=== PATIENT | male | born 1960 | race Hispanic/Latino ===

== ENCOUNTER 2017-07-13 07:06 | Inpatient (IN) | payer BC ==
[2017-07-06 08:57] LABS: BASOPHILS # (AUTO) 0.1 (0.0-0.1); BASOPHILS % 0.6 % (0.0-1.0); EOSINOPHILS # (AUTO) 0.5 (0.0-0.4); EOSINOPHILS % 4.6 % (0.0-6.0); HEMOGLOBIN 12.5 g/dL (14.0-18.0); LYMPHOCYTES # (AUTO) 2.3 (1.0-3.2); LYMPHOCYTES % 20.4 % (18.0-39.1); MEAN CORPUSCULAR HGB CONC 33.8 g/dL (31-35); MEAN CORPUSCULAR VOLUME 88.9 fL (81-99); MONOCYTES # (AUTO) 0.9 (0.2-0.8); MONOCYTES % 7.6 % (4.4-11.3); NEUTROPHILS # (AUTO) 7.6 (2.1-6.9); NEUTROPHILS % 66.4 % (38.7-80.0); PLATELET COUNT 99 x10e3/uL (140-360); RED BLOOD COUNT 4.16 x10e6/uL (4.3-5.7); RED CELL DISTRIBUTION WIDTH 15.4 % (11.7-14.4)
[2017-07-06 09:43] LABS: ANION GAP 13.2 mmol/L (8-16); BLOOD UREA NITROGEN 15 mg/dL (7-26); BUN/CREATININE RATIO 16 (6-25); CALCIUM 9.4 mg/dL (8.4-10.2); CARBON DIOXIDE 28 mmol/L (22-29); CHLORIDE 105 mmol/L (98-107); CREATININE, SERUM 0.93 mg/dL (0.72-1.25); EST GLOMERULAR FILTRATION RATE > 60 ML/MIN (60-); GLUCOSE 98 mg/dL (74-118); POTASSIUM 5.2 mmol/L (3.5-5.1); SODIUM 141 mmol/L (136-145)
[~2017-07-13] VITALS: Ht 175.3 cm; Wt 147.4 kg
[~2017-07-13 07:06] MED LIST: LOSARTAN-HCTZ1 EAC2 PO
[2017-07-13] MEDS ORDERED: BUPIVACAINE 0.25%/EPI 30ML SDV INJ ONE (08:11)
[2017-07-13] MEDS ORDERED: ACETAMINOPHEN 1000 MG/100 ML IV PRN (15:00)
[2017-07-13] MEDS ORDERED: ONDANSETRON HCL INJ 2 MG/ML VIAL IV PRN (15:00)
[2017-07-13] MEDS ORDERED: HYDROMORPHONE 0.2MG/ML-SOD CHL 30ML PCA SYRINGE IV PRN (15:00)
[2017-07-13] MEDS ORDERED: NALOXONE HCL INJ 0.4 MG/ML AMP IV PRN (15:00)
[2017-07-13] MEDS ORDERED: KETOROLAC TROMETHAMINE 30 MG/ML VIAL IV PRN (15:00)
[2017-07-13] MEDS ORDERED: FENTANYL CITRATE/PF 100MCG/2 ML INJ ONE ×2 (15:04→19:15)
--- NOTE | 2017-07-13 15:53 | Operative Report ---
DATE OF PROCEDURE: July 13, 2017 PREOPERATIVE DIAGNOSIS: Incarcerated recurrent ventral hernia. POSTOPERATIVE DIAGNOSES 1. Incarcerated recurrent ventral hernia. 2. Extensive intra-abdominal adhesions with partial small-bowel obstruction. OPERATION PERFORMED 1. Exploratory laparotomy. 2. Extensive lysis of intra-abdominal adhesions. 3. Repair of recurrent ventral hernia with mesh and bilateral component relaxation and omphalectomy. SEWER SEPARATION DESIGNER: GIULIANO Kaminski. ANESTHESIA: General. COMPLICATIONS: None. ESTIMATED BLOOD LOSS: 200 mL. DESCRIPTION OF PROCEDURE: With the patient lying in bed in the supine position, under good general endotracheal anesthesia, the abdomen was prepped with Betadine solution and draped in the usual manner. An elliptical incision was then made to include the entire old incision from the xiphoid down to the pubis including the umbilicus. The incision was then deepened through the subcutaneous tissue. Immediately, a large hernia sac was encountered in the mid and upper abdomen. The hernia sac was then slowly and carefully , and the fascia was identified laterally on both sides. The hernia sac was then slowly and carefully dissected. There were several other defects along the midline fascia, and the fascia was then cleared laterally in all directions all the way to the anterior axillary line. After this was done, the hernia sac was then entered, and extensive adhesions were encountered inside, which were slowly and carefully taken down. At this point, once we were able to access the abdominal cavity, it became evident that the distal bowel was decompressed and the proximal small bowel was significantly distended, showing all signs of a partial or nearly complete small-bowel obstruction, which explains the patient's pain. Probably it has been due in some degree to a partial bowel obstruction as well as the large hernia. The only way to be able to get access to the extensive adhesions was to actually enlarge the incision along the midline of the hernia sac. The abdominal incision was then extended downward. At this point, we went ahead and slowly and carefully mobilized the small bowel. There were extensive adhesions all over the place, particularly down in the pelvis where there were multiple sutures from what we assume was some kind of a colonic anastomosis. The small bowel was plastered in the pelvis, and this was the point of obstruction. Small bowel was slowly and carefully from all of the adhesions, and we were then able to freely free it up all the way from the ligament of Treitz to the terminal ileum, and all of the adhesions were carefully lysed. Exploration of the abdominal cavity also revealed the patient's known cirrhosis of the liver. Once all of the bowel was cleared up and the adhesions were taken care of, the bowel was then carefully reduced back to the intra-abdominal cavity. The midline fascia was then approximated using interrupted [id number] of #0 Ethibond and #1 Ethibond. It was further oversewn with a running #1 PDS from the xiphoid all the way down to the pubis. This gave us a satisfactory closure, but it was clearly under tension due to the large defect that was present, so bilateral relaxations were then performed in the lateral rectus. This gave us a good release, and all of the tension of the midline was then relieved. A large piece of Ultrapro mesh was then placed to cover the entire abdomen and then sutured all the way around with interrupted sutures of #0 Ethibond and #0 Vicryl. This gave us complete coverage of the entire abdominal cavity. The whole area was then thoroughly irrigated. Perfect hemostasis was ascertained. The subcutaneous tissue was then approximated using interrupted sutures of 2-0 Vicryl. Two 10 flat Edwin-Russell drains were left in the wound and brought out through separate stab wound incisions. The skin was closed using interrupted vertical mattress sutures of 2-0 silk and srini. Dressings were placed. The sponge, lap and needle count was correct. Patient tolerated the procedure well and returned to the recovery room in stable condition. Job#: [id number]
[2017-07-13] MEDS ORDERED: HYDROMORPHONE 0.2MG/ML-SOD CHL 30ML PCA SYRINGE IV ONE (16:14)
[2017-07-13 16:54] VITALS: BP 120/64
[2017-07-13] MEDS: PANTOPRAZOLE 40 MG 10ML VIAL IV SCH (17:32)
[2017-07-13] MEDS: NITROGLYCERIN 2% OINT 1 GM PKT TOP SCH (17:32)
[2017-07-13] MEDS: CEFTRIAXONE SOD 1 GM VIAL IV SCH (17:32)
[2017-07-13] MEDS: SODIUM CHLORIDE 0.9% 250ML IRRIG IR SCH ×3 (17:33→22:34)
[2017-07-13] MEDS: SODIUM CHLORIDE 0.9% 1000ML 1,000 ML IV SCH (17:36)
[2017-07-13] MEDS ORDERED: MIDAZOLAM HCL 2 MG/2 ML VIAL ONE (19:15)
[2017-07-13] MEDS ORDERED: ROCURONIUM BROMIDE 10 MG/ML 5ML VIAL ONE (19:39)
[2017-07-13] MEDS ORDERED: LIDOCAINE HCL 2% LOCAL INJ 5 ML SDV VIAL INJ ONE (19:39)
[2017-07-13] MEDS ORDERED: PROPOFOL IV EMULSION 10 MG/ML 20 ML VIAL ONE (19:39)
[2017-07-13] MEDS ORDERED: DEXAMETHASONE SOD PHOS INJ 4 MG/ML VIAL ONE (19:39)
[2017-07-13] MEDS ORDERED: NEOSTIGMINE 5 MG/5ML SYR ONE (19:39)
[2017-07-13] MEDS ORDERED: ONDANSETRON HCL INJ 2 MG/ML VIAL ONE (19:39)
[2017-07-13] MEDS ORDERED: CEFAZOLIN SOD 1 GM VIAL ONE (19:39)
[2017-07-13] MEDS ORDERED: SEVOFLURANE INHAL SOLN 250 ML PEN BTL ONE (19:39)
[2017-07-13] MEDS ORDERED: GLYCOPYRROLATE INJ 1MG/ 5 ML SYR ONE (19:39)
[2017-07-13 20:00] VITALS: BP 118/59
[2017-07-13 20:11] VITALS: BP 118/59
[2017-07-14] VITALS: BP 122/63
[2017-07-14] MEDS: NITROGLYCERIN 2% OINT 1 GM PKT TOP SCH ×4 (00:45→17:08)
[2017-07-14] MEDS: SODIUM CHLORIDE 0.9% 1000ML 1,000 ML IV SCH ×4 (01:01→17:09)
[2017-07-14] MEDS: SODIUM CHLORIDE 0.9% 250ML IRRIG IR SCH ×6 (01:02→20:41)
[2017-07-14 04:00] VITALS: BP 120/67
[2017-07-14 06:56] LABS: BASOPHILS % 0.1 % (0.0-1.0); HEMATOCRIT 33.2 % (38.2-49.6); HEMOGLOBIN 11.3 g/dL (14.0-18.0); LYMPHOCYTES # (AUTO) 1.9 (1.0-3.2); LYMPHOCYTES % 8.6 % (18.0-39.1); MEAN CORPUSCULAR VOLUME 88.1 fL (81-99); MONOCYTES # (AUTO) 2.5 (0.2-0.8); MONOCYTES % 11.5 % (4.4-11.3); NEUTROPHILS # (AUTO) 16.9 (2.1-6.9); NEUTROPHILS % 78.5 % (38.7-80.0); PLATELET COUNT 147 x10e3/uL (140-360); RED BLOOD COUNT 3.77 x10e6/uL (4.3-5.7); RED CELL DISTRIBUTION WIDTH 15.7 % (11.7-14.4)
[2017-07-14 07:13] LABS: ANION GAP 11.3 mmol/L (8-16); BLOOD UREA NITROGEN 13 mg/dL (7-26); BUN/CREATININE RATIO 15 (6-25); CALCIUM 8.2 mg/dL (8.4-10.2); CARBON DIOXIDE 25 mmol/L (22-29); CHLORIDE 106 mmol/L (98-107); CREATININE, SERUM 0.89 mg/dL (0.72-1.25); EST GLOMERULAR FILTRATION RATE > 60 ML/MIN (60-); GLUCOSE 108 mg/dL (74-118); POTASSIUM 4.3 mmol/L (3.5-5.1); SODIUM 138 mmol/L (136-145)
[2017-07-14 07:55] VITALS: BP 120/65
[2017-07-14 08:29] LABS: ANISOCYTOSIS SLIGHT; LYMPHOCYTES % (MANUAL) 10 % (19-48); MONOCYTES % (MANUAL) 8 % (3.4-9.0); NEUTROPHILS % (MANUAL) 82 % (40-74); PLATELET ESTIMATE SLIGHTLY DECREASED; PLATELET MORPHOLOGY COMMENT FEW LARGE; RBC MORPHOLOGY COMMENT NORMAL
[2017-07-14 09:08] VITALS: BP 120/65
[2017-07-14] MEDS: PANTOPRAZOLE 40 MG 10ML VIAL IV SCH (09:09)
--- NOTE | 2017-07-14 11:25 | Diagnostic Imaging Report ---
PROCEDURE:X-RAY ABDOMEN - KUB COMPARISON:None. INDICATIONS:NG TUBE PLACEMENT FINDINGS: NG tube sidehole projects over the region of the gastroesophageal junction. The tip projects over the gastric body. No significantly distended air-filled loops of large or small bowel within the visualized abdomen. Skin srini and stent project over the abdomen right of midline. Partially visualized rectangular opacity projects over the left lower quadrant which may represent a drain. Right retrocardiac opacity may reflect atelectasis or aspiration. There are no acute osseous abnormalities. CONCLUSION: NG tube sidehole projects over the region of the gastroesophageal junction. The tip projects over the gastric body. Consider advancement. Dictated by: Shaquille Correa M.D. on 07/14/2017 at 11:25 Electronically approved by: Shaquille Correa M.D. on 07/14/2017 at 11:25
[2017-07-14] MEDS: CEFTRIAXONE SOD 1 GM VIAL IV SCH (15:43)
[2017-07-14] MEDS ORDERED: ACETAMINOPHEN 650 MG SUPP PR PRN (17:45)
[2017-07-14] MEDS: ACETAMINOPHEN 1000 MG/100 ML IV PRN (17:56)
[2017-07-14 20:00] VITALS: BP 127/58
[2017-07-14 20:41] VITALS: BP 127/58
[2017-07-15] VITALS (7 sets, daily range): BP systolic 116–145; BP diastolic 60–85
[2017-07-15] MEDS: NITROGLYCERIN 2% OINT 1 GM PKT TOP SCH ×4 (00:54→17:15)
[2017-07-15] MEDS: SODIUM CHLORIDE 0.9% 250ML IRRIG IR SCH ×5 (00:54→15:08)
[2017-07-15] MEDS: SODIUM CHLORIDE 0.9% 1000ML 1,000 ML IV SCH ×4 (00:55→17:15)
[2017-07-15] MEDS: ACETAMINOPHEN 1000 MG/100 ML IV PRN ×2 (00:55→09:14)
[2017-07-15 06:48] LABS: BASOPHILS # (AUTO) 0.1 (0.0-0.1); BASOPHILS % 0.4 % (0.0-1.0); EOSINOPHILS # (AUTO) 0.2 (0.0-0.4); EOSINOPHILS % 0.7 % (0.0-6.0); HEMATOCRIT 31.2 % (38.2-49.6); HEMOGLOBIN 10.5 g/dL (14.0-18.0); LYMPHOCYTES # (AUTO) 2.2 (1.0-3.2); LYMPHOCYTES % 10.8 % (18.0-39.1); MEAN CORPUSCULAR HEMOGLOBIN 29.8 pg (28-32); MEAN CORPUSCULAR HGB CONC 33.7 g/dL (31-35); MEAN CORPUSCULAR VOLUME 88.6 fL (81-99); MONOCYTES # (AUTO) 2.4 (0.2-0.8); MONOCYTES % 11.7 % (4.4-11.3); NEUTROPHILS # (AUTO) 15.3 (2.1-6.9); NEUTROPHILS % 75.6 % (38.7-80.0); PLATELET COUNT 123 x10e3/uL (140-360); RED BLOOD COUNT 3.52 x10e6/uL (4.3-5.7); RED CELL DISTRIBUTION WIDTH 15.6 % (11.7-14.4)
[2017-07-15 07:16] LABS: ANION GAP 8.9 mmol/L (8-16); BLOOD UREA NITROGEN 11 mg/dL (7-26); BUN/CREATININE RATIO 14 (6-25); CALCIUM 8.2 mg/dL (8.4-10.2); CARBON DIOXIDE 26 mmol/L (22-29); CHLORIDE 105 mmol/L (98-107); CREATININE, SERUM 0.81 mg/dL (0.72-1.25); EST GLOMERULAR FILTRATION RATE > 60 ML/MIN (60-); GLUCOSE 102 mg/dL (74-118); POTASSIUM 3.9 mmol/L (3.5-5.1); SODIUM 136 mmol/L (136-145)
[2017-07-15] MEDS: PANTOPRAZOLE 40 MG 10ML VIAL IV SCH (08:14)
[2017-07-15 09:06] LABS: EOSINOPHILS % (MANUAL) 1 % (0-7); METAMYELOCYTES % (MANUAL) 2 % (0-0); NEUTROPHILS % (MANUAL) 96 % (40-74)
[2017-07-15] MEDS: CEFTRIAXONE SOD 1 GM VIAL IV SCH (15:45)
[2017-07-15] MEDS: BISACODYL 10 MG SUPP PR SCH (21:11)
[2017-07-15] MEDS ORDERED: ACETAMINOPHEN 1000 MG/100 ML IV PRN (23:45)
[2017-07-16] VITALS (9 sets, daily range): BP systolic 106–134; BP diastolic 58–65
[2017-07-16] MEDS: SODIUM CHLORIDE 0.9% 1000ML 1,000 ML IV SCH ×3 (04:08→22:09)
[2017-07-16] MEDS: NITROGLYCERIN 2% OINT 1 GM PKT TOP SCH ×2 (05:34)
[2017-07-16 07:20] LABS: BASOPHILS # (AUTO) 0.1 (0.0-0.1); BASOPHILS % 0.4 % (0.0-1.0); EOSINOPHILS # (AUTO) 0.5 (0.0-0.4); EOSINOPHILS % 2.6 % (0.0-6.0); HEMATOCRIT 30.9 % (38.2-49.6); HEMOGLOBIN 10.2 g/dL (14.0-18.0); LYMPHOCYTES # (AUTO) 2.2 (1.0-3.2); LYMPHOCYTES % 12.8 % (18.0-39.1); MEAN CORPUSCULAR HEMOGLOBIN 29.6 pg (28-32); MEAN CORPUSCULAR VOLUME 89.6 fL (81-99); MONOCYTES # (AUTO) 1.6 (0.2-0.8); MONOCYTES % 9.1 % (4.4-11.3); NEUTROPHILS # (AUTO) 12.7 (2.1-6.9); NEUTROPHILS % 74.3 % (38.7-80.0); PLATELET COUNT 125 x10e3/uL (140-360); RED BLOOD COUNT 3.45 x10e6/uL (4.3-5.7); RED CELL DISTRIBUTION WIDTH 15.5 % (11.7-14.4)
[2017-07-16 07:58] LABS: ANION GAP 9.7 mmol/L (8-16); BLOOD UREA NITROGEN 10 mg/dL (7-26); BUN/CREATININE RATIO 14 (6-25); CALCIUM 8.3 mg/dL (8.4-10.2); CARBON DIOXIDE 24 mmol/L (22-29); CHLORIDE 106 mmol/L (98-107); EST GLOMERULAR FILTRATION RATE > 60 ML/MIN (60-); GLUCOSE 95 mg/dL (74-118); POTASSIUM 3.7 mmol/L (3.5-5.1); SODIUM 136 mmol/L (136-145)
[2017-07-16] MEDS: BISACODYL 10 MG SUPP PR SCH (08:00)
[2017-07-16] MEDS: PANTOPRAZOLE 40 MG 10ML VIAL IV SCH (08:14)
[2017-07-16 11:03] LABS: BAND NEUTROPHILS % (MANUAL) 1 %; EOSINOPHILS % (MANUAL) 3 % (0-7); LYMPHOCYTES % (MANUAL) 9 % (19-48); MONOCYTES % (MANUAL) 10 % (3.4-9.0); MYELOCYTES % (MANUAL) 1 % (0-0); NEUTROPHILS % (MANUAL) 75 % (40-74); PLATELET ESTIMATE ADEQUATE; PLATELET MORPHOLOGY COMMENT FEW LARGE; RBC MORPHOLOGY COMMENT NORMAL
[2017-07-16] MEDS: CEFTRIAXONE SOD 1 GM VIAL IV SCH (16:08)
[2017-07-16] MEDS: HYDROCODONE/APAP 10MG-325MG TAB PO PRN (17:40)
[2017-07-17] VITALS (8 sets, daily range): BP systolic 109–154; BP diastolic 57–91
[2017-07-17] MEDS: PANTOPRAZOLE 40 MG 10ML VIAL IV SCH (07:51)
[2017-07-17] MEDS: HYDROCODONE/APAP 10MG-325MG TAB PO PRN ×3 (07:51→20:00)
[2017-07-17 08:00] LABS: BASOPHILS # (AUTO) 0.1 (0.0-0.1); BASOPHILS % 0.5 % (0.0-1.0); EOSINOPHILS % 6.4 % (0.0-6.0); HEMATOCRIT 30.6 % (38.2-49.6); HEMOGLOBIN 10.1 g/dL (14.0-18.0); LYMPHOCYTES # (AUTO) 1.9 (1.0-3.2); LYMPHOCYTES % 12.5 % (18.0-39.1); MEAN CORPUSCULAR HEMOGLOBIN 29.3 pg (28-32); MEAN CORPUSCULAR VOLUME 88.7 fL (81-99); MONOCYTES # (AUTO) 1.1 (0.2-0.8); MONOCYTES % 7.3 % (4.4-11.3); NEUTROPHILS % 72.8 % (38.7-80.0); PLATELET COUNT 151 x10e3/uL (140-360); RED BLOOD COUNT 3.45 x10e6/uL (4.3-5.7); RED CELL DISTRIBUTION WIDTH 15.4 % (11.7-14.4)
[2017-07-17] MEDS ORDERED: NON-FORMULARY MEDICATION (Losartan/Hydrochlorothiazide (Losartan-Hctz 100-12.5 Mg Tab) 1 T PO SCH (09:00)
[2017-07-17] MEDS: HYDROCHLOROTHIAZIDE 25 MG TAB PO SCH (09:20)
[2017-07-17] MEDS: LOSARTAN POTASSIUM 100 MG TAB PO SCH (09:20)
[2017-07-17] MEDS: SODIUM CHLORIDE 0.9% 1000ML 1,000 ML IV SCH (10:07)
[2017-07-17] MEDS: CEFTRIAXONE SOD 1 GM VIAL IV SCH (15:50)
[2017-07-18] VITALS: BP 141/76
[2017-07-18 02:02] VITALS: BP 141/76
[2017-07-18 05:45] VITALS: BP 114/62
[2017-07-18 07:24] VITALS: BP 133/62
[2017-07-18 07:26] LABS: BASOPHILS # (AUTO) 0.1 (0.0-0.1); BASOPHILS % 0.5 % (0.0-1.0); EOSINOPHILS # (AUTO) 1.2 (0.0-0.4); EOSINOPHILS % 7.7 % (0.0-6.0); HEMATOCRIT 31.5 % (38.2-49.6); HEMOGLOBIN 10.5 g/dL (14.0-18.0); LYMPHOCYTES % 13.1 % (18.0-39.1); MEAN CORPUSCULAR HEMOGLOBIN 29.5 pg (28-32); MEAN CORPUSCULAR HGB CONC 33.3 g/dL (31-35); MEAN CORPUSCULAR VOLUME 88.5 fL (81-99); MONOCYTES # (AUTO) 1.1 (0.2-0.8); MONOCYTES % 7.6 % (4.4-11.3); NEUTROPHILS # (AUTO) 10.5 (2.1-6.9); NEUTROPHILS % 70.5 % (38.7-80.0); PLATELET COUNT 169 x10e3/uL (140-360); RED BLOOD COUNT 3.56 x10e6/uL (4.3-5.7); RED CELL DISTRIBUTION WIDTH 15.3 % (11.7-14.4)
[2017-07-18 09:00] VITALS: BP 133/62
[2017-07-18] MEDS: HYDROCHLOROTHIAZIDE 25 MG TAB PO SCH (10:00)
[2017-07-18] MEDS: PANTOPRAZOLE 40 MG 10ML VIAL IV SCH (10:00)
[2017-07-18] MEDS: LOSARTAN POTASSIUM 100 MG TAB PO SCH (10:00)
[2017-07-18] MEDS: CEFTRIAXONE SOD 1 GM VIAL IV SCH (16:30)
[2017-07-18] MEDS ORDERED: LORATAB PO (16:57)
[2017-07-18] MEDS ORDERED: KEFLEX500 MG PO (16:58)
[2017-07-18] MEDS ORDERED: PROMETHAZINE HC25 M1 PO (16:59)
== END 2017-07-18 17:29 | disposition home or self-care (01) | DRG 337 ==
LOC: OR 07:06 → MED/SURG 15:34 → OBSVTOIN 15:34
PROVIDERS: ADMIT Surgery; ATTEND Surgery
PROC: 0DNW0ZZ Release Peritoneum, Open Approach (ICD-10-PCS; 2017-07-13)
PROC: 0WBF0ZX Excision of Abdominal Wall, Open Approach, Diagnostic (ICD-10-PCS; 2017-07-13)
PROC: 0DN80ZZ Release Small Intestine, Open Approach (ICD-10-PCS; 2017-07-13)
PROC: 3E0M45Z Introduction of Adhesion Barrier into Peritoneal Cavity, Percutaneous Endoscopic Approach (ICD-10-PCS; 2017-07-13)
PROC: 0WUF0JZ Supplement Abdominal Wall with Synthetic Substitute, Open Approach (ICD-10-PCS; principal; 2017-07-13 08:30)
DX: K43.0 Incisional hernia with obstruction, without gangrene (principal); K74.60 Unspecified cirrhosis of liver; I10 Essential (primary) hypertension; B19.20 Unspecified viral hepatitis C without hepatic coma; Z90.49 Acquired absence of other specified parts of digestive tract
CPT/HCPCS: 36415; 74018; 80048; 85025; 88302; 88304; 93005; C1781; J0690; J0696; J1100; J2001; J2250; J2405; J7030

== ENCOUNTER → 2017-08-16 | Outpatient (CLI) | payer BC ==
[~2017-08-16] MED LIST changes: +KEFLEX500 MG PO; +LORATAB PO; +PROMETHAZINE HC25 M1 PO
== END ==
LOC: WCC 08:44
PROVIDERS: ATTEND Surgery
DX: T81.32XA Disruption of internal operation (surgical) wound, not elsewhere classified, initial encounter (principal); K91.31 Postprocedural partial intestinal obstruction; I10 Essential (primary) hypertension; E66.01 Morbid (severe) obesity due to excess calories

== ENCOUNTER → 2017-08-17 | Outpatient (CLI) | payer BC | LOC: WCC 10:26 | PROVIDERS: ATTEND Surgery | DX: T81.32XA Disruption of internal operation (surgical) wound, not elsewhere classified, initial encounter (principal); K91.31 Postprocedural partial intestinal obstruction; I10 Essential (primary) hypertension; E66.01 Morbid (severe) obesity due to excess calories ==

== ENCOUNTER → 2017-08-18 | Outpatient (CLI) | payer BC | LOC: WCC 09:25 | PROVIDERS: ATTEND Surgery | DX: T81.32XA Disruption of internal operation (surgical) wound, not elsewhere classified, initial encounter (principal); K91.31 Postprocedural partial intestinal obstruction; I10 Essential (primary) hypertension; E66.01 Morbid (severe) obesity due to excess calories ==

== ENCOUNTER → 2017-08-22 | Outpatient (CLI) | payer BC | LOC: WCC 09:23 | PROVIDERS: ATTEND Surgery | DX: T81.32XA Disruption of internal operation (surgical) wound, not elsewhere classified, initial encounter (principal); K91.31 Postprocedural partial intestinal obstruction; I10 Essential (primary) hypertension; E66.01 Morbid (severe) obesity due to excess calories ==

== ENCOUNTER → 2017-08-22 | Outpatient (CLI) | payer BC | LOC: WCC 09:21 | PROVIDERS: ATTEND Surgery | DX: T81.32XA Disruption of internal operation (surgical) wound, not elsewhere classified, initial encounter (principal); K91.31 Postprocedural partial intestinal obstruction; I10 Essential (primary) hypertension; E66.01 Morbid (severe) obesity due to excess calories ==

== ENCOUNTER → 2017-08-24 | Outpatient (CLI) | payer BC | LOC: WCC 08:45 | PROVIDERS: ATTEND Surgery | DX: T81.32XA Disruption of internal operation (surgical) wound, not elsewhere classified, initial encounter (principal); K91.31 Postprocedural partial intestinal obstruction; I10 Essential (primary) hypertension; E66.01 Morbid (severe) obesity due to excess calories ==

== ENCOUNTER → 2017-08-26 | Outpatient (CLI) | payer BC | LOC: WCC 13:22 | PROVIDERS: ATTEND Surgery | DX: T81.32XA Disruption of internal operation (surgical) wound, not elsewhere classified, initial encounter (principal); K91.31 Postprocedural partial intestinal obstruction; I10 Essential (primary) hypertension; E66.01 Morbid (severe) obesity due to excess calories ==

== ENCOUNTER → 2017-08-29 | Outpatient (CLI) | payer BC | LOC: WCC 10:00 | PROVIDERS: ATTEND Surgery | DX: T81.32XA Disruption of internal operation (surgical) wound, not elsewhere classified, initial encounter (principal); K91.31 Postprocedural partial intestinal obstruction; I10 Essential (primary) hypertension; E66.01 Morbid (severe) obesity due to excess calories ==

== ENCOUNTER → 2017-08-31 | Outpatient (CLI) | payer BC | LOC: EDBD → EDSEX → WCC 09:16 | PROVIDERS: ATTEND Surgery | DX: T81.32XA Disruption of internal operation (surgical) wound, not elsewhere classified, initial encounter (principal); K91.31 Postprocedural partial intestinal obstruction; I10 Essential (primary) hypertension; E66.01 Morbid (severe) obesity due to excess calories ==

== ENCOUNTER → 2017-09-02 | Outpatient (CLI) | payer BC | LOC: WCC 08:57 | PROVIDERS: ATTEND Surgery | DX: T81.32XA Disruption of internal operation (surgical) wound, not elsewhere classified, initial encounter (principal); K91.31 Postprocedural partial intestinal obstruction; I10 Essential (primary) hypertension; E66.01 Morbid (severe) obesity due to excess calories ==

== ENCOUNTER → 2017-09-06 | Outpatient (CLI) | payer BC | LOC: WCC 09:53 | PROVIDERS: ATTEND Surgery | DX: T81.32XA Disruption of internal operation (surgical) wound, not elsewhere classified, initial encounter (principal); K91.31 Postprocedural partial intestinal obstruction; I10 Essential (primary) hypertension; E66.01 Morbid (severe) obesity due to excess calories ==

== ENCOUNTER → 2017-09-09 | Outpatient (CLI) | payer BC | LOC: WCC 09:03 | PROVIDERS: ATTEND Surgery | DX: T81.32XA Disruption of internal operation (surgical) wound, not elsewhere classified, initial encounter (principal); K91.31 Postprocedural partial intestinal obstruction; I10 Essential (primary) hypertension; E66.01 Morbid (severe) obesity due to excess calories ==

== ENCOUNTER → 2017-09-12 | Outpatient (CLI) | payer BC | LOC: EDBD → EDSEX → WCC 09:06 | PROVIDERS: ATTEND Plastic Surgery | DX: T81.32XA Disruption of internal operation (surgical) wound, not elsewhere classified, initial encounter (principal); K91.31 Postprocedural partial intestinal obstruction; I10 Essential (primary) hypertension; E66.01 Morbid (severe) obesity due to excess calories ==

== ENCOUNTER → 2017-09-14 | Outpatient (CLI) | payer BC | LOC: WCC 08:51 | PROVIDERS: ATTEND Surgery | DX: T81.32XA Disruption of internal operation (surgical) wound, not elsewhere classified, initial encounter (principal); K91.31 Postprocedural partial intestinal obstruction; I10 Essential (primary) hypertension; E66.01 Morbid (severe) obesity due to excess calories | CPT/HCPCS: 87071; 87075; 87205 ==

== ENCOUNTER → 2017-09-16 | Outpatient (CLI) | payer BC | LOC: WCC 08:58 | PROVIDERS: ATTEND Surgery | DX: T81.32XA Disruption of internal operation (surgical) wound, not elsewhere classified, initial encounter (principal); K91.31 Postprocedural partial intestinal obstruction; I10 Essential (primary) hypertension; E66.01 Morbid (severe) obesity due to excess calories ==

== ENCOUNTER → 2017-09-19 | Outpatient (CLI) | payer BC | LOC: WCC 08:52 | PROVIDERS: ATTEND Surgery | DX: T81.32XA Disruption of internal operation (surgical) wound, not elsewhere classified, initial encounter (principal); A49.02 Methicillin resistant Staphylococcus aureus infection, unspecified site; I10 Essential (primary) hypertension; K91.31 Postprocedural partial intestinal obstruction; E66.01 Morbid (severe) obesity due to excess calories ==

== ENCOUNTER → 2017-09-20 | Outpatient (CLI) | payer BC | LOC: WCC 08:25 | PROVIDERS: ATTEND Surgery | DX: T81.32XA Disruption of internal operation (surgical) wound, not elsewhere classified, initial encounter (principal); K91.31 Postprocedural partial intestinal obstruction; A49.02 Methicillin resistant Staphylococcus aureus infection, unspecified site; I10 Essential (primary) hypertension; E66.01 Morbid (severe) obesity due to excess calories ==

== ENCOUNTER → 2017-09-23 | Outpatient (CLI) | payer BC | LOC: EDBD → EDSEX → WCC 09:51 | PROVIDERS: ATTEND Surgery | DX: T81.32XA Disruption of internal operation (surgical) wound, not elsewhere classified, initial encounter (principal); A49.02 Methicillin resistant Staphylococcus aureus infection, unspecified site; K91.31 Postprocedural partial intestinal obstruction; I10 Essential (primary) hypertension; E66.01 Morbid (severe) obesity due to excess calories ==

== ENCOUNTER → 2017-09-26 | Outpatient (CLI) | payer BC | LOC: EDSEX → EDBD → WCC 14:02 | PROVIDERS: ATTEND Plastic Surgery | DX: T81.32XA Disruption of internal operation (surgical) wound, not elsewhere classified, initial encounter (principal); A49.02 Methicillin resistant Staphylococcus aureus infection, unspecified site; K91.31 Postprocedural partial intestinal obstruction; I10 Essential (primary) hypertension; E66.01 Morbid (severe) obesity due to excess calories ==

== ENCOUNTER → 2017-09-28 | Outpatient (CLI) | payer BC | LOC: EDSEX → WCC 10:49 | PROVIDERS: ATTEND Surgery | DX: T81.32XA Disruption of internal operation (surgical) wound, not elsewhere classified, initial encounter (principal); A49.02 Methicillin resistant Staphylococcus aureus infection, unspecified site; K91.31 Postprocedural partial intestinal obstruction; I10 Essential (primary) hypertension; E66.01 Morbid (severe) obesity due to excess calories ==

== ENCOUNTER → 2017-09-30 | Outpatient (CLI) | payer BC | LOC: WCC 14:29 | PROVIDERS: ATTEND Internal Medicine Infectious Disease | DX: T81.32XA Disruption of internal operation (surgical) wound, not elsewhere classified, initial encounter (principal); A49.02 Methicillin resistant Staphylococcus aureus infection, unspecified site; K91.31 Postprocedural partial intestinal obstruction; I10 Essential (primary) hypertension; E66.01 Morbid (severe) obesity due to excess calories ==

== ENCOUNTER → 2017-10-03 | Outpatient (CLI) | payer BC | LOC: WCC 10:12 | PROVIDERS: ATTEND Plastic Surgery | DX: T81.32XA Disruption of internal operation (surgical) wound, not elsewhere classified, initial encounter (principal); K91.31 Postprocedural partial intestinal obstruction; A49.02 Methicillin resistant Staphylococcus aureus infection, unspecified site; L02.232 Carbuncle of back [any part, except buttock and flank]; I10 Essential (primary) hypertension; E66.01 Morbid (severe) obesity due to excess calories | CPT/HCPCS: 87071; 87075; 87205 ==

== ENCOUNTER → 2017-10-05 | Outpatient (CLI) | payer BC | LOC: WCC 09:58 | PROVIDERS: ATTEND Plastic Surgery | DX: T81.32XA Disruption of internal operation (surgical) wound, not elsewhere classified, initial encounter (principal); K91.31 Postprocedural partial intestinal obstruction; L02.232 Carbuncle of back [any part, except buttock and flank]; A49.02 Methicillin resistant Staphylococcus aureus infection, unspecified site; I10 Essential (primary) hypertension; E66.01 Morbid (severe) obesity due to excess calories ==

== ENCOUNTER → 2017-10-07 | Outpatient (CLI) | payer BC | LOC: WCC 11:13 | PROVIDERS: ATTEND Internal Medicine Infectious Disease | DX: T81.32XA Disruption of internal operation (surgical) wound, not elsewhere classified, initial encounter (principal); K91.31 Postprocedural partial intestinal obstruction; L02.232 Carbuncle of back [any part, except buttock and flank]; A49.02 Methicillin resistant Staphylococcus aureus infection, unspecified site; I10 Essential (primary) hypertension; E66.01 Morbid (severe) obesity due to excess calories ==

== ENCOUNTER → 2017-10-11 | Outpatient (CLI) | payer BC | LOC: EDBD → WCC 11:50 | PROVIDERS: ATTEND Plastic Surgery | DX: T81.32XA Disruption of internal operation (surgical) wound, not elsewhere classified, initial encounter (principal); L02.232 Carbuncle of back [any part, except buttock and flank]; K91.31 Postprocedural partial intestinal obstruction; A49.02 Methicillin resistant Staphylococcus aureus infection, unspecified site; I10 Essential (primary) hypertension; E66.01 Morbid (severe) obesity due to excess calories ==

== ENCOUNTER → 2017-10-14 | Outpatient (CLI) | payer BC | LOC: EDBD → WCC 10:18 | PROVIDERS: ATTEND Plastic Surgery | DX: T81.32XA Disruption of internal operation (surgical) wound, not elsewhere classified, initial encounter (principal); K91.31 Postprocedural partial intestinal obstruction; L02.232 Carbuncle of back [any part, except buttock and flank]; A49.02 Methicillin resistant Staphylococcus aureus infection, unspecified site; I10 Essential (primary) hypertension; E66.01 Morbid (severe) obesity due to excess calories ==

== ENCOUNTER → 2017-10-17 | Outpatient (CLI) | payer BC | LOC: EDBD → WCC 12:15 | PROVIDERS: ATTEND Plastic Surgery | DX: T81.32XA Disruption of internal operation (surgical) wound, not elsewhere classified, initial encounter (principal); L02.232 Carbuncle of back [any part, except buttock and flank]; A49.02 Methicillin resistant Staphylococcus aureus infection, unspecified site; K91.31 Postprocedural partial intestinal obstruction; I10 Essential (primary) hypertension; E66.01 Morbid (severe) obesity due to excess calories ==

== ENCOUNTER → 2017-10-21 | Outpatient (CLI) | payer BC | LOC: WCC 12:36 | PROVIDERS: ATTEND Plastic Surgery | DX: T81.32XA Disruption of internal operation (surgical) wound, not elsewhere classified, initial encounter (principal); K91.31 Postprocedural partial intestinal obstruction; L02.232 Carbuncle of back [any part, except buttock and flank]; I10 Essential (primary) hypertension; A49.02 Methicillin resistant Staphylococcus aureus infection, unspecified site; E66.01 Morbid (severe) obesity due to excess calories ==

== ENCOUNTER → 2017-10-27 | Outpatient (CLI) | payer BC | LOC: EDBD → WCC 10:48 | PROVIDERS: ATTEND Plastic Surgery | DX: T81.32XA Disruption of internal operation (surgical) wound, not elsewhere classified, initial encounter (principal); L02.232 Carbuncle of back [any part, except buttock and flank]; A49.02 Methicillin resistant Staphylococcus aureus infection, unspecified site; K91.31 Postprocedural partial intestinal obstruction; I10 Essential (primary) hypertension; E66.01 Morbid (severe) obesity due to excess calories ==

== ENCOUNTER → 2017-11-04 | Outpatient (CLI) | payer BC | LOC: EDBD → WCC 13:27 | PROVIDERS: ATTEND Plastic Surgery | DX: T81.32XA Disruption of internal operation (surgical) wound, not elsewhere classified, initial encounter (principal); L02.232 Carbuncle of back [any part, except buttock and flank]; A49.02 Methicillin resistant Staphylococcus aureus infection, unspecified site; K91.31 Postprocedural partial intestinal obstruction; I10 Essential (primary) hypertension; E66.01 Morbid (severe) obesity due to excess calories ==

== ENCOUNTER → 2017-11-11 | Outpatient (CLI) | payer BC | LOC: WCC 09:14 | PROVIDERS: ATTEND Plastic Surgery | DX: T81.32XA Disruption of internal operation (surgical) wound, not elsewhere classified, initial encounter (principal); K91.31 Postprocedural partial intestinal obstruction; L02.232 Carbuncle of back [any part, except buttock and flank]; A49.02 Methicillin resistant Staphylococcus aureus infection, unspecified site; I10 Essential (primary) hypertension; E66.01 Morbid (severe) obesity due to excess calories ==

== ENCOUNTER 2020-09-24 14:38 | Observation (INO) | payer BC ==
[~2020-09-24] VITALS: Ht 175.3 cm; Wt 147.4 kg
[2020-09-24] MEDS ORDERED: ONDANSETRON HCL INJ 2MG/ML 2ML 2 MG/ML VIAL IV STA ×2 (15:13→19:22)
[2020-09-24] MEDS ORDERED: MORPHINE SULFATE INJ 4 MG/ML INJ 1ML IV STA (15:13)
[2020-09-24] MEDS ORDERED: SODIUM CHLORIDE 0.9% 1000ML 1,000 ML IV STA (15:13)
[2020-09-24 15:29] LABS: BASOPHILS # (AUTO) 0.1 (0.0-0.1); BASOPHILS % 0.5 % (0.0-1.0); EOSINOPHILS # (AUTO) 0.8 (0.0-0.4); EOSINOPHILS % 4.7 % (0.0-6.0); HEMOGLOBIN 11.5 g/dL (14.0-18.0); LYMPHOCYTES # (AUTO) 2.6 (1.0-3.2); LYMPHOCYTES % 15.4 % (18.0-39.1); MEAN CORPUSCULAR HEMOGLOBIN 29.2 pg (28-32); MEAN CORPUSCULAR HGB CONC 32.9 g/dL (31-35); MEAN CORPUSCULAR VOLUME 88.8 fL (81-99); NEUTROPHILS % 72.8 % (38.7-80.0); PLATELET COUNT 190 x10e3/uL (140-360); RED BLOOD COUNT 3.94 x10e6/uL (4.3-5.7); RED CELL DISTRIBUTION WIDTH 15.9 % (11.7-14.4)
[2020-09-24 15:50] LABS: ANION GAP 14.7 mmol/L (8-16); CALCIUM 8.5 mg/dL (8.4-10.2); CREATININE, SERUM 1.23 mg/dL (0.72-1.25); POTASSIUM 3.7 mmol/L (3.5-5.1)
[2020-09-24] MEDS ORDERED: LEVOFLOXACIN 500MG/D5W 100ML IV SCH (19:30)
[2020-09-24] MEDS ORDERED: FENTANYL CITRATE/PF 100MCG/2 ML INJ IV ONE (19:30)
[2020-09-24] MEDS: CEFEPIME 1 GM in SODIUM CHLORIDE 0.9% 50ML 50 ML IV SCH (19:39)
[2020-09-24 19:56] LABS: CLARITY,URINE CLEAR (CLEAR); COLOR,URINE YELLOW (YELLOW)
[2020-09-24 19:57] LABS: KETONES,URINE NEGATIVE (NEGATIVE); LEUKOCYTE ESTERASE ,URINE NEGATIVE (NEGATIVE); NITRITE,URINE NEGATIVE (NEGATIVE); PROTEIN,URINE DIPSTICK NEGATIVE (NEGATIVE); URINE UROBILINOGEN 0.2 mg/dL (0.2 - 1)
[2020-09-24] MEDS ORDERED: LEVOFLOXACIN 500MG/D5W 100ML 100 ML IV SCH (20:00)
[2020-09-24 20:15] LABS: BACTERIA,URINE FEW /HPF
[2020-09-24 23:29] VITALS: BP 102/61
[2020-09-24 23:37] VITALS: BP 102/61
[2020-09-24 23:54] VITALS: BP 102/70
[2020-09-25] VITALS (7 sets, daily range): BP systolic 104–120; BP diastolic 60–77
[2020-09-25 05:35] LABS: BASOPHILS # (AUTO) 0.1 (0.0-0.1); BASOPHILS % 0.5 % (0.0-1.0); EOSINOPHILS # (AUTO) 0.6 (0.0-0.4); EOSINOPHILS % 5.2 % (0.0-6.0); HEMATOCRIT 31.9 % (38.2-49.6); HEMOGLOBIN 10.4 g/dL (14.0-18.0); LYMPHOCYTES # (AUTO) 1.7 (1.0-3.2); LYMPHOCYTES % 14.4 % (18.0-39.1); MEAN CORPUSCULAR HEMOGLOBIN 29.2 pg (28-32); MEAN CORPUSCULAR HGB CONC 32.6 g/dL (31-35); MEAN CORPUSCULAR VOLUME 89.6 fL (81-99); MONOCYTES # (AUTO) 0.8 (0.2-0.8); MONOCYTES % 6.9 % (4.4-11.3); NEUTROPHILS # (AUTO) 8.6 (2.1-6.9); NEUTROPHILS % 72.4 % (38.7-80.0); PLATELET COUNT 144 x10e3/uL (140-360); RED BLOOD COUNT 3.56 x10e6/uL (4.3-5.7); RED CELL DISTRIBUTION WIDTH 15.9 % (11.7-14.4)
[2020-09-25 07:27] LABS: ALANINE AMINOTRANSFERASE 12 IU/L (0-55); ALBUMIN 3.6 g/dL (3.5-5.0); ALKALINE PHOSPHATASE 51 IU/L (40-150); ANION GAP 10.3 mmol/L (8-16); BLOOD UREA NITROGEN 18 mg/dL (7-26); BUN/CREATININE RATIO 17 (6-25); CALCIUM 8.4 mg/dL (8.4-10.2); CARBON DIOXIDE 26 mmol/L (22-29); CHLORIDE 107 mmol/L (98-107); CREATININE, SERUM 1.07 mg/dL (0.72-1.25); EST GLOMERULAR FILTRATION RATE > 60 ML/MIN (60-); GLUCOSE 105 mg/dL (74-118); POTASSIUM 4.3 mmol/L (3.5-5.1); SODIUM 139 mmol/L (136-145)
[2020-09-25] MEDS: CEFEPIME 1 GM in SODIUM CHLORIDE 0.9% 50ML 50 ML IV SCH ×2 (08:21→21:15)
[2020-09-25] MEDS ORDERED: SODIUM CHLORIDE 0.9% 250ML 250 ML ONE (11:01)
[2020-09-25] MEDS: METRONIDAZOLE 500MG/NS 100ML 100 ML IV SCH ×2 (14:59→22:24)
[2020-09-25] MEDS: MORPHINE SULFATE INJ 4 MG/ML INJ 1ML IV PRN (21:22)
[2020-09-26] VITALS (8 sets, daily range): BP systolic 107–145; BP diastolic 68–79
[2020-09-26 05:28] LABS: BASOPHILS # (AUTO) 0.1 (0.0-0.1); BASOPHILS % 0.4 % (0.0-1.0); EOSINOPHILS # (AUTO) 0.8 (0.0-0.4); EOSINOPHILS % 6.7 % (0.0-6.0); HEMATOCRIT 31.8 % (38.2-49.6); HEMOGLOBIN 10.4 g/dL (14.0-18.0); LYMPHOCYTES # (AUTO) 2.2 (1.0-3.2); LYMPHOCYTES % 18.3 % (18.0-39.1); MEAN CORPUSCULAR HEMOGLOBIN 29.2 pg (28-32); MEAN CORPUSCULAR HGB CONC 32.7 g/dL (31-35); MEAN CORPUSCULAR VOLUME 89.3 fL (81-99); MONOCYTES # (AUTO) 0.9 (0.2-0.8); NEUTROPHILS # (AUTO) 7.8 (2.1-6.9); NEUTROPHILS % 66.2 % (38.7-80.0); PLATELET COUNT 139 x10e3/uL (140-360); RED BLOOD COUNT 3.56 x10e6/uL (4.3-5.7); RED CELL DISTRIBUTION WIDTH 15.9 % (11.7-14.4)
[2020-09-26 05:43] LABS: ALANINE AMINOTRANSFERASE 11 IU/L (0-55); ALBUMIN 3.4 g/dL (3.5-5.0); ALKALINE PHOSPHATASE 46 IU/L (40-150); ANION GAP 12.1 mmol/L (8-16); BLOOD UREA NITROGEN 17 mg/dL (7-26); BUN/CREATININE RATIO 18 (6-25); CALCIUM 8.4 mg/dL (8.4-10.2); CARBON DIOXIDE 26 mmol/L (22-29); CHLORIDE 104 mmol/L (98-107); CREATININE, SERUM 0.95 mg/dL (0.72-1.25); EST GLOMERULAR FILTRATION RATE > 60 ML/MIN (60-); GLUCOSE 100 mg/dL (74-118); POTASSIUM 4.1 mmol/L (3.5-5.1); SODIUM 138 mmol/L (136-145)
[2020-09-26] MEDS: METRONIDAZOLE 500MG/NS 100ML 100 ML IV SCH ×2 (06:33→14:25)
[2020-09-26] MEDS: CEFEPIME 1 GM in SODIUM CHLORIDE 0.9% 50ML 50 ML IV SCH ×2 (08:29→09:59)
[2020-09-26] MEDS: MORPHINE SULFATE INJ 4 MG/ML INJ 1ML IV PRN (08:29)
[2020-09-26] MEDS ORDERED: FENTANYL CITRATE/PF 100MCG/2 ML INJ ONE ×2 (13:38→15:19)
[2020-09-26] MEDS ORDERED: MIDAZOLAM HCL 2 MG/2 ML VIAL ONE (13:38)
[2020-09-26] MEDS ORDERED: BUPIVACAINE 0.25% 30ML SDV ONE (14:05)
[2020-09-26] MEDS ORDERED: METRONIDAZOLE 500MG/NS 100ML 100 ML IV ONE (14:32)
[2020-09-26] MEDS ORDERED: HYDROCODONE/APAP 7.5MG-325MG 1 EA TAB PO PRN (15:00)
[2020-09-26] MEDS: SODIUM CHLORIDE 0.9% 1000ML 1,000 ML IV SCH (15:00)
[2020-09-26] MEDS: HYDROMORPHONE 1MG/1ML INJ IV PRN ×2 (17:02→21:58)
[2020-09-26] MEDS ORDERED: ROCURONIUM BROMIDE 10 MG/ML 5ML VIAL IV ONE (18:06)
[2020-09-26] MEDS ORDERED: SEVOFLURANE INHAL SOLN 250 ML PEN BTL ONE (18:06)
[2020-09-26] MEDS ORDERED: ONDANSETRON HCL INJ 2MG/ML 2ML 2 MG/ML VIAL ONE (18:06)
[2020-09-26] MEDS ORDERED: PROPOFOL IV EMULSION 10 MG/ML 20 ML VIAL ONE (18:06)
[2020-09-26] MEDS ORDERED: POVIDONE IODINE 0.05% 0.05 % ML PO ONE (18:06)
[2020-09-26] MEDS ORDERED: SUCCINYLCHOLINE CHLORIDE 20 MG/ML 10ML VIAL ONE (18:06)
[2020-09-26] MEDS ORDERED: LIDOCAINE HCL 2% LOCAL INJ 5 ML SDV VIAL INJ ONE (18:06)
[2020-09-26] MEDS ORDERED: DEXAMETHASONE SOD PHOS INJ 4 MG/ML VIAL ONE (18:06)
[2020-09-27] VITALS: BP 130/86
[2020-09-27] MEDS: SODIUM CHLORIDE 0.9% 1000ML 1,000 ML IV SCH ×2 (01:00→12:13)
[2020-09-27 04:00] VITALS: BP 114/66
[2020-09-27 06:23] LABS: BASOPHILS % 0.2 % (0.0-1.0); HEMATOCRIT 31.9 % (38.2-49.6); HEMOGLOBIN 10.6 g/dL (14.0-18.0); LYMPHOCYTES # (AUTO) 0.7 (1.0-3.2); LYMPHOCYTES % 4.7 % (18.0-39.1); MEAN CORPUSCULAR HEMOGLOBIN 29.5 pg (28-32); MEAN CORPUSCULAR HGB CONC 33.2 g/dL (31-35); MEAN CORPUSCULAR VOLUME 88.9 fL (81-99); MONOCYTES # (AUTO) 0.8 (0.2-0.8); MONOCYTES % 5.2 % (4.4-11.3); NEUTROPHILS # (AUTO) 12.9 (2.1-6.9); NEUTROPHILS % 88.9 % (38.7-80.0); PLATELET COUNT 157 x10e3/uL (140-360); RED BLOOD COUNT 3.59 x10e6/uL (4.3-5.7); RED CELL DISTRIBUTION WIDTH 15.7 % (11.7-14.4)
[2020-09-27 06:56] LABS: ALANINE AMINOTRANSFERASE 14 IU/L (0-55); ALBUMIN 3.5 g/dL (3.5-5.0); ALKALINE PHOSPHATASE 50 IU/L (40-150); ANION GAP 12.2 mmol/L (8-16); BLOOD UREA NITROGEN 16 mg/dL (7-26); BUN/CREATININE RATIO 14 (6-25); CALCIUM 8.1 mg/dL (8.4-10.2); CARBON DIOXIDE 24 mmol/L (22-29); CHLORIDE 106 mmol/L (98-107); CREATININE, SERUM 1.11 mg/dL (0.72-1.25); EST GLOMERULAR FILTRATION RATE > 60 ML/MIN (60-); GLUCOSE 112 mg/dL (74-118); POTASSIUM 4.2 mmol/L (3.5-5.1); SODIUM 138 mmol/L (136-145)
[2020-09-27 07:53] VITALS: BP 107/65
[2020-09-27 08:07] VITALS: BP 107/65
[2020-09-27] MEDS ORDERED: LOSARTAN POTASSIUM 100 MG TAB PO SCH (09:00)
[2020-09-27] MEDS ORDERED: HYDROCHLOROTHIAZIDE 25 MG TAB PO SCH (09:00)
[2020-09-27] MEDS ORDERED: NON-FORMULARY MEDICATION (Losartan/Hydrochlorothiazide (Losartan-Hctz 100-12.5 Mg Tab) 1 T PO SCH (09:00)
[2020-09-27] MEDS ORDERED: CEFTRIAXONE 1 GM in SODIUM CHLORIDE 0.9% 50ML 50 ML IV SCH (09:00)
[2020-09-27 09:13] LABS: LYMPHOCYTES % (MANUAL) 3 % (19-48); MONOCYTES % (MANUAL) 2 % (3.4-9.0); NEUTROPHILS % (MANUAL) 95 % (40-74); PLATELET ESTIMATE ADEQUATE; PLATELET MORPHOLOGY COMMENT NORMAL; RBC MORPHOLOGY COMMENT NORMAL
[2020-09-27 11:52] VITALS: BP 111/74
[2020-09-27] MEDS: HYDROMORPHONE 1MG/1ML INJ IV PRN (14:23)
[2020-09-27 16:46] VITALS: BP 94/56
== END 2020-09-27 20:07 | disposition home or self-care (01) ==
LOC: EDBD 14:38 → ER 15:13 → ERHOLD 19:34 → MED/SURG2 21:42
PROVIDERS: ADMIT Surgery; ATTEND Surgery
DX: K80.62 Calculus of gallbladder and bile duct with acute cholecystitis without obstruction (principal); K74.60 Unspecified cirrhosis of liver; K66.0 Peritoneal adhesions (postprocedural) (postinfection); E66.01 Morbid (severe) obesity due to excess calories; Z68.42 Body mass index [BMI] 45.0-49.9, adult
CPT/HCPCS: 36415 ×4; 47562; 74177; 78227; 80053 ×4; 81001; 83605 ×2; 83690; 85025 ×4; 87040; 88304; 96361; 99284; A9537; C1766; C9113 ×2; G0378 ×4; J0330; J0692 ×3; J0696; J1100; J1170 ×2; J1956; J2001; J2250; J2270 ×2; J2405 ×2; J2704; J3010 ×2; J7030 ×2; J7050

== ENCOUNTER 2021-05-14 07:45 | Emergency (ER) | payer BC ==
[~2021-05-14] VITALS: Ht 175.3 cm; Wt 147.4 kg
[2021-05-14 08:14] LABS: BASOPHILS # (AUTO) 0.1 (0.0-0.1); BASOPHILS % 0.5 % (0.0-1.0); EOSINOPHILS # (AUTO) 0.8 (0.0-0.4); EOSINOPHILS % 5.5 % (0.0-6.0); HEMATOCRIT 38.7 % (38.2-49.6); HEMOGLOBIN 12.4 g/dL (14.0-18.0); LYMPHOCYTES # (AUTO) 1.8 (1.0-3.2); MEAN CORPUSCULAR HEMOGLOBIN 29.2 pg (28-32); MEAN CORPUSCULAR VOLUME 91.3 fL (81-99); MONOCYTES # (AUTO) 0.9 (0.2-0.8); MONOCYTES % 6.2 % (4.4-11.3); NEUTROPHILS # (AUTO) 10.3 (2.1-6.9); NEUTROPHILS % 74.4 % (38.7-80.0); PLATELET COUNT 182 x10e3/uL (140-360); RED BLOOD COUNT 4.24 x10e6/uL (4.3-5.7); RED CELL DISTRIBUTION WIDTH 15.5 % (11.7-14.4)
[2021-05-14 08:30] LABS: MAGNESIUM 2.2 MG/DL (1.3-2.1)
[2021-05-14 08:42] LABS: ALBUMIN 3.9 g/dL (3.5-5.0); ALBUMIN/GLOBULIN RATIO 0.9 (0.8-2.0); CALCIUM 9.2 mg/dL (8.4-10.2); CREATININE, SERUM 1.06 mg/dL (0.72-1.25)
[2021-05-14 08:50] LABS: CREATINE KINASE MB 1.2 ng/mL (0-5.0)
[2021-05-14 08:55] LABS: CLARITY,URINE CLEAR (CLEAR); COLOR,URINE YELLOW (YELLOW); KETONES,URINE NEGATIVE (NEGATIVE); LEUKOCYTE ESTERASE ,URINE NEGATIVE (NEGATIVE); NITRITE,URINE NEGATIVE (NEGATIVE); PROTEIN,URINE DIPSTICK NEGATIVE (NEGATIVE); URINE UROBILINOGEN 0.2 mg/dL (0.2 - 1)
[2021-05-14 08:59] LABS: BACTERIA,URINE MODERATE /HPF; EPITHELIAL CELLS,URINE FEW /LPF; RBC,URINE 21-50 /HPF (0-5); WBC,URINE (MAN) 0-5 /HPF (0-5)
[2021-05-14] MEDS ORDERED: HYDROCODON-ACE1 EA11 PO (10:07)
[2021-05-14 10:59] LABS: EOSINOPHILS % (MANUAL) 8 % (0-7); LYMPHOCYTES % (MANUAL) 7 % (19-48); MONOCYTES % (MANUAL) 4 % (3.4-9.0); NEUTROPHILS % (MANUAL) 81 % (40-74); PLATELET ESTIMATE ADEQUATE
[2021-05-14 11:00] LABS: PLATELET MORPHOLOGY COMMENT FEW LARGE; RBC MORPHOLOGY COMMENT NORMAL
== END 2021-05-14 10:18 | disposition home or self-care (01) ==
LOC: ER 07:49
DX: R10.11 Right upper quadrant pain (principal); R31.9 Hematuria, unspecified; I10 Essential (primary) hypertension; Z98.0 Intestinal bypass and anastomosis status
CPT/HCPCS: 36415; 71045; 74176; 80053; 81001; 82150; 82550; 82553; 83690; 83735; 84484; 85025; 93005; 99284